=== PATIENT | male | born 1995 | race Caucasian/White ===

== ENCOUNTER 2019-01-04 16:58 | Emergency (ER) | payer OTHER ==
[~2019-01-04] VITALS: Ht 180.3 cm; Wt 54.4 kg
[2019-01-04 17:03] VITALS: BP 137/97
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
--- NOTE | 2019-01-04 17:15 | NUR ---
Dr. Barnett at bedside
[2019-01-04 17:23] VITALS: BP 137/97
--- NOTE | 2019-01-04 17:23 | NUR ---
Patient discharged with v/s stable. Written and verbal after care instructions given and explained. Patient verbalized understanding. Ambulatory with steady gait. All questions addressed prior to discharge. Advised to follow up with PMD.
== END 2019-01-04 17:23 | disposition home or self-care (01) ==
LOC: MED 16:58
DX: F41.9 Anxiety disorder, unspecified (principal); Z02.89 Encounter for other administrative examinations
CPT/HCPCS: 99284